=== PATIENT | male | born 1990 ===

== ENCOUNTER 2017-05-05 14:21 | Emergency (ER) | payer SELFPAY ==
--- NOTE | 2017-05-05 15:42 | C.PDOC ---
History Of Present Illness Patient complains of epigastric abdominal pain for one year. He reports pain is mild and intermittent and occurs after eating. He tried changing his diet and taking OTC prilosec with relief for some time. Over the past month the pain has been ongoing, but he admits he stopped taking the Prilosec. He reports pain is only after eating and denies any pain currently. He states for 3 days he noticed drops of bright red blood with bowel movements, and reports itching to retctal area but denies rectal pain. Denies any fever, diarrhea, weight loss/ gain, weakness. He has no primary doctor. Time Seen by Provider: 05/05/17 15:08 Chief Complaint (Nursing): Abdominal Pain History Per: Patient History/Exam Limitations: no limitations Onset/Duration Of Symptoms: Days (3) Context: Food Severity: Mild Location Of Pain/Discomfort: Epigastric Quality Of Discomfort: "Pain" Associated Symptoms: Constipation Past Medical History Reviewed: Historical Data, Nursing Documentation, Vital Signs Vital Signs: Last Vital Signs Temp 97.8 F 05/05/17 17:08 Pulse 70 05/05/17 17:08 Resp 20 05/05/17 17:08 BP 104/63 05/05/17 17:08 Pulse Ox 99 05/05/17 18:07 - Medical History PMH: Gastritis Family History: States: Unknown Family Hx - Social History Hx Alcohol Use: No Hx Substance Use: No - Immunization History Hx Tetanus Toxoid Vaccination: No Hx Influenza Vaccination: No Hx Pneumococcal Vaccination: No Review Of Systems Constitutional: Negative for: Fever, Weakness, Malaise Eyes: Negative for: Vision Change, Redness Cardiovascular: Negative for: Chest Pain, Palpitations Respiratory: Negative for: Cough, Shortness of Breath Gastrointestinal: Positive for: Abdominal Pain, Constipation, Other (BRBPR). Negative for: Diarrhea Genitourinary: Negative for: Dysuria Skin: Negative for: Rash Neurological: Negative for: Weakness, Numbness, Headache, Dizziness Physical Exam - Physical Exam Additional Physical Exam Comments: Appears: Well Appearing, Non-toxic, No Acute Distress Skin: Warm, Dry, No Rash Head: Atraumatic, Normacephalic Eye(s): bilateral: Normal Inspection Oral Mucosa: Moist Neck: Normal ROM Chest: Symmetrical Cardiovascular: Rhythm Regular, No Murmur Respiratory: Normal Breath Sounds, No Rales, No Rhonchi, No Wheezing Gastrointestinal/Abdominal: Bowel Sounds active, Soft, No Tenderness, No Guarding Rectal: External inspection: mildly erythematous base with creamy white film to perianal region extending towards scrotum. no hemorrhoids, normal rectal tone, no blood streaked stool Extremity: Bilateral: Atraumatic, Normal Color and Temperature, Normal ROM Neurological/Psych: Oriented x3, Normal Speech Gait: Steady ED Course And Treatment - Laboratory Results Result Diagrams: 05/05/17 16:13 05/05/17 16:13 O2 Sat by Pulse Oximetry: 99 Medical Decision Making Medical Decision Making: Labs reviewed with no acute abnormalities, H/H WNL. Stool occult negative Patient remained afebrile alert and oriented with stable vital signs during ER evaluation. Discussed results with patient, and copy of lab report was provided. On re-examination, patient is resting comfortably in no acute distress. Patient has no abdominal pain. Patient feels comfortable going home and will be discharged. Patient given follow up instructions for the clinic and Rx given. Instructed to return to ER if symptoms worsen or new symptoms arise. Disposition Counseled Patient/Family Regarding: Studies Performed, Diagnosis, Need For Followup, Rx Given - Disposition [facility] Disposition: HOME/ ROUTINE Disposition Time: 16:53 Condition: GOOD Additional Instructions: Tus laboratorios son normales por favor tome medicamentos diariamente para el dolor de gastritis aplicar crema en el casandra rectal seguimiento en la clnica Prescriptions: Docusate [Colace] 100 mg PO TID PRN #30 cap PRN Reason: Constipation Nystatin [Nystatin Cream] 100,000 unit TP BID #1 tube Omeprazole 20 mg PO DAILY #30 capsule. Instructions: Gastritis (DC), Skin Yeast Infection (ED) Forms: [employer] (Tajik) Print Language: IRAQI - POA Present On Arrival: None - Clinical Impression Clinical Impression: Gastritis, Briana albicans infection
[2017-05-05 16:20] LABS: BASO # 0.1 K/uL (0.0-0.2); BASO % 0.9 % (0.0-2.0); EOS # 0.4 K/uL (0.0-0.7); EOS % 5.7 % (0.0-4.0); HEMOGLOBIN 15.6 g/dL (12.0-18.0); LYMPH # 2.1 K/uL (1.0-4.3); LYMPH % 28.2 % (20.0-40.0); MEAN CELL VOLUME 84.2 fL (80.0-94.0); MEAN CORPUSCULAR HEMOGLOBIN 29.2 pg (27.0-31.0); MEAN CORPUSCULAR HGB CONC 34.7 g/dL (33.0-37.0); MEAN PLATELET VOLUME 9.4 fL (7.2-11.7); MONO # 0.5 K/uL (0.0-0.8); MONO % 6.8 % (0.0-10.0); NEUT # 4.3 K/uL (1.8-7.0); NEUT % 58.4 % (50.0-75.0); NRBC % 0.1 % (0.0-2.0); RBC 5.33 Mil/uL (4.40-5.90); RED CELL DISTRIBUTION WIDTH 12.9 % (11.5-14.5); WHITE BLOOD COUNT 7.4 K/uL (4.8-10.8)
[2017-05-05 16:32] LABS: ALB/GLOB RATIO 1.3 (1.0-2.1); ALBUMIN 4.5 g/dL (3.5-5.0); ALT/SGPT 39 U/L (21-72); AST/SGOT 29 U/L (17-59); BLOOD UREA NITROGEN 14 mg/dL (9-20); CALCIUM 9.1 mg/dl (8.6-10.4); GFR AFRICAN-AMERICAN > 60; GFR NON-AFRICAN AMERICAN > 60; HDL CHOLESTEROL 63 mg/dL (30-70); LIPASE 132 U/L (23-300)
[2017-05-05 16:42] LABS: LDL CHOLESTEROL 53 mg/dL (0-129)
[2017-05-05 17:09] VITALS: BP 104/63; PULSE 70; RESP 20; TEMP 97.8
[2017-05-05 17:20] VITALS: O2SAT 99
== END 2017-05-05 17:10 | disposition home or self-care (01) ==
LOC: C.ER 14:21
DX: K29.70 Gastritis, unspecified, without bleeding (principal); B37.89 Other sites of candidiasis
CPT/HCPCS: 80053; 80061; 83690; 85025; 86677; 96374; 99283; G0328